=== PATIENT | male | born 1960 | race Caucasian/White ===

== ENCOUNTER 2019-04-19 18:34 | Observation (INO) | payer BC ==
--- NOTE | 2019-04-19 19:11 | Emergency Department Record ---
History of Present Illness - General Chief complaint: Extremity Problem Stated complaint: LT ARM PAIN MONTH Time Seen by Provider: 04/19/19 18:41 Source: Patient Mode of Arrival: Ambulatory Limitations: No limitations - History of Present Illness Initial comments: 58 yo male presents to ED for evaluation of intermittent left upper arm pain for 1 month, worsens with movement of the upper extremity. Patient denies pain with exertion walking up or down stairs, denies chest discomfort or back pain symptoms. Patient does report significant history of anxiety symptoms, became concerned tonight that he "might not wake up tomorrow". Patient does report a history of HTN, hypercholesterolemia. Patient also reports that he has been drinking alcohol tonight. MD Complaint: Extremity pain Onset/Timin -: Month(s) Location: Left, Arm History of Same: Yes Severity scale (1-10): 1 Quality: Sharp, Stabbing Consistency: Intermittent Improves with: Nothing Worsens with: Nothing - Related Data Home Medications Medication Instructions Recorded Confirmed Last Taken Amlodipine Besylate [Norvasc] 10 mg PO DAILY 04/19/19 04/19/19 04/19/19 Chlordiazepoxide HCl [Librium] 25 mg PO ASDIR 04/19/19 04/19/19 04/18/19 Dexlansoprazole [Dexilant] 60 mg PO DAILY 04/19/19 04/19/19 04/19/19 Levothyroxine Sodium [Synthroid] 88 mcg PO DAILY 04/19/19 04/19/19 04/19/19 Lisinopril 20 mg PO DAILY 04/19/19 04/19/19 04/19/19 Pravastatin Sodium [Pravachol] 40 mg PO DAILY 04/19/19 04/19/19 04/19/19 Sertraline HCl [Zoloft] 25 mg PO DAILY 04/19/19 04/19/19 04/19/19 Allergies Allergy/AdvReac Type Severity Reaction Status Date / Time erythromycin base Allergy PT UNSURE Verified 04/19/19 18:40 OF REACTION Horse/Equine Containing Allergy SWELLING Verified 04/19/19 18:40 Products (GENERAL) atenolol [From Tenormin] AdvReac DIARRHEA Verified 04/19/19 18:40 codeine AdvReac PT UNSURE Verified 04/19/19 18:40 OF REACTION Travel Screening - Travel/Exposure Within Last 30 Days Have you traveled within the last 30 days?: No - Travel/Exposure Within Last Year Have you traveled outside the [place] in the last year?: No - Additonal Travel Details Have you been exposed to anyone with a communicable illness?: No - Travel Symptoms Symptom Screening: None Review of Systems Constitutional: Denies: Chills, Fever, Malaise, Night sweats Eyes: Denies: Eye discharge, Eye pain ENT: Denies: Congestion, Ear pain, Epistaxis Respiratory: Denies: Cough, Dyspnea Cardiovascular: Denies: Chest pain, Dyspnea on exertion Endocrine: Denies: Fatigue, Heat or cold intolerance Gastrointestinal: Denies: Abdominal pain, Nausea, Vomiting Genitourinary: Denies: Incontinence, Retention Musculoskeletal: Reports: Myalgia. Denies: Arthralgia, Back pain, Gout, Joint swelling, Other Skin: Denies: Bruising, Change in color Neurological: Denies: Abnormal gait, Confusion, Headache, Seizure Psychiatric: Denies: Anxiety Hematological/Lymphatic: Denies: Anemia, Blood Clots Past Medical History - SOCIAL HISTORY Smoking Status: Former smoker Alcohol Use: Heavy Drug Use: None - RESPIRATORY Hx Respiratory Disorders: No - CARDIOVASCULAR Hx Cardio Disorders: Yes Hx Hypertension: Yes - NEURO Hx Neuro Disorders: No - GI Hx GI Disorders: No - Hx Genitourinary Disorders: No - ENDOCRINE Hx Endocrine Disorders: Yes Hx Thyroid Disease: Yes - MUSCULOSKELETAL Hx Musculoskeletal Disorders: No - PSYCH Hx Psych Problems: Yes Hx Anxiety: Yes - HEMATOLOGY/ONCOLOGY Hx Hematology/Oncology Disorders: No Family Medical History Any Significant Family History?: Yes Family Hx Comment (NOT TO BE USED IN PLACE OF ITEMS BELOW): Dad AAA Hx Cancer: Mother Hx Heart Disease: Father, Mother Physical Exam - General General Appearance: Alert, Oriented x3, Cooperative, No acute distress, Other (Clinically intoxicated on examination) Limitations: No limitations - Head Head exam: Atraumatic, Normocephalic, Normal inspection Head exam detail: negative: Abrasion, Contusion, Leon's sign, General tenderness, Hematoma, Laceration - Eye Eye exam: Normal appearance. negative: Conjunctival injection, Periorbital swelling, Periorbital tenderness, Scleral icterus - ENT Ear exam: negative: Auricular hematoma, Auricular trauma Nasal Exam: negative: Active bleeding, Discharge, Dried blood, Foreign body Mouth exam: negative: Drooling, Laceration, Muffled voice, Tongue elevation - Neck Neck exam: Normal inspection. negative: Meningismus, Tenderness - Respiratory Respiratory exam: Normal lung sounds bilaterally. negative: Rales, Respiratory distress, Rhonchi, Stridor - Cardiovascular Cardiovascular Exam: Regular rate, Normal rhythm, Normal heart sounds - GI/Abdominal GI/Abdominal exam: Soft. negative: Rebound, Rigid, Tenderness - Rectal Rectal exam: Deferred - exam: Deferred - Extremities Extremities exam: Normal inspection. negative: Pedal edema, Tenderness - Back Back exam: Denies: CVA tenderness (R), CVA tenderness (L) - Neurological Neurological exam: Alert, Normal gait, Oriented X3 - Psychiatric Psychiatric exam: Anxious - Skin Skin exam: Normal color. negative: Abrasion Type of lesion: negative: abrasion Course Vital Signs 04/19/19 18:47 Temperature 98.5 F Pulse Rate 82 Respiratory 20 Rate Blood Pressure 161/106 Pulse Ox 97 - Reevaluation(s) Reevaluation #1: 04/19/19 19:23 EKG: NSR 73 Normal axis, normal intervals No acute ST-T wave changes are present on examination. Reevaluation #2: 04/19/19 19:53 Laboratory studies were reviewed and appear grossly unremarkable for an acute process except for the following: Alcohol 0.247 CXR: Borderline cardiomegaly No acute pulmonary process Reevaluation #3: 04/19/19 20:03 The patient was deemed to be low-risk for cardiac disease based on the patients history and evaluation in the ED, HEART Score was applied and found to be 4. Recommended admission for chemical stress testing and further evaluation. Patient will discuss admission with his and decide. Reevaluation #4: 04/19/19 20:29 Patient reports that he is willing to stay for admission and cardiac testing. Case was discussed with Dr. Paul, will accept admission at this time. Medical Decision Making - Lab Data Result diagrams: 04/19/19 19:15 04/19/19 19:15 Disposition Disposition: Admit Clinical Impression: Atypical chest pain Decision to Admit: Admit from ER Decision to Admit Date: 04/19/19 Decision to Admit Time: 20:29 Condition: (2) Stable Forms: Patient Portal Access Time of Disposition: 20:29 Quality - Quality Measures Quality Measures: N/A - Blood Pressure Screening Does Patient Have Any of the Following: Active Dx of HTN Blood Pressure Classification: Hypertensive Reading Systolic Measurement: 161 Diastolic Measurement: 106 Screening for High Blood Pressure: Patient Exclusion, Hx of HTN [[id number]]
[2019-04-19 19:25] LABS: ABSOLUTE NEUTROPHIL COUNT 3.81; BASO % 0.4 % (0-6); EOS % 2.9 % (0-6); GRAN % 52.8 % (47-80); HEMATOCRIT 45.9 % (42.0-52.0); HEMOGLOBIN 15.1 gm/dl (14.0-18.0); LYMPH % 36.4 % (16-45); MEAN CELL VOLUME 94.6 fl (81-97); MEAN CORPUSCULAR HEMOGLOBIN 31.1 pg (27-33); MEAN CORPUSCULAR HGB CONC 32.9 g/dl (32-36); MEAN PLATELET VOLUME 9.5 fl (7.4-10.4); MONO % 7.5 % (0-9); PLATELET COUNT 311 K/uL (130-400); RED BLOOD COUNT 4.85 M/uL (4.40-5.70); RED CELL DISTRIBUTION WIDTH 13.7 % (11.5-14.5); WHITE BLOOD COUNT W/O DIFF 7.2 K/uL (4.2-12.2)
[2019-04-19 19:34] LABS: BLOOD UREA NITROGEN 7 mg/dL (6-20); CREATININE 0.6 mg/dL (0.7-1.2); EST GLOMERULAR FILTRATION RATE > 60 mL/min
[2019-04-19 19:35] LABS: TOTAL PROTEIN 7.9 g/dL (6.6-8.7)
[2019-04-19 19:37] LABS: GLUCOSE,RANDOM 109 mg/dL (74-109)
[2019-04-19 19:40] LABS: ALB/GLOB RATIO 1.3 (1.1-1.8); ALBUMIN 4.5 g/dL (4.0-5.0); ALKALINE PHOSPHATASE 84 U/L (40-129); ALT/SGPT 35 U/L (<41); AST/SGOT 32 U/L (10.0-50.0)
[2019-04-19] MEDS ORDERED: ASPIRIN 81 MG CHEWABLE TABLET PO ONE (20:35)
--- NOTE | 2019-04-19 20:49 | RADIOLOGY REPORT ---
EXAMINATION: 2 view chest x-rays EXAM DATE: 04/19/2019 8:43 PM INDICATION: chest pain. Left arm pain per the technologist history. COMPARISON: None FINDINGS: The heart is borderline enlarged. The thoracic aorta is minimally tortuous. The lungs are clear. No pleural effusion is seen. There are mild degenerative changes in the thoracic spine. IMPRESSION: 1. Borderline cardiomegaly. 2. No acute pulmonary disease. Dictated by: Rogerio Blackburn MD on 04/19/2019 8:46 PM. .
[2019-04-19] MEDS ORDERED: 0.9 % SODIUM CHLORIDE 1000ML 1,000 ML IV ONE (20:55)
[2019-04-19] MEDS ORDERED: CHLORDIAZEPOXIDE 25 MG CAPSULE PO PRN (20:55)
[2019-04-19] MEDS: LORAZEPAM 2 MG/ML VIAL IV PRN (23:23)
[2019-04-20] MEDS: LORAZEPAM 2 MG/ML VIAL IV PRN (04:02)
[2019-04-20] MEDS ORDERED: LEVOTHYROXINE SODIUM 88 MCG TABLET PO SCH (07:00)
[2019-04-20] MEDS: PANTOPRAZOLE SODIUM 40 MG TABLET PO SCH ×2 (08:15→09:01)
[2019-04-20] MEDS: LISINOPRIL 20 MG TABLET PO SCH ×2 (08:15→09:02)
[2019-04-20] MEDS: SIMVASTATIN 20 MG TABLET PO SCH ×2 (08:16→09:02)
[2019-04-20] MEDS: SERTRALINE HCL 50 MG TABLET PO SCH ×3 (08:16→09:02)
[2019-04-20] MEDS: AMLODIPINE BESYLATE 5MG TAB PO SCH ×2 (08:16→09:01)
[2019-04-20] MEDS: ASPIRIN 325 MG TAB ENTERIC-COATED PO SCH ×2 (08:16→09:01)
--- NOTE | 2019-04-20 10:41 | History & Physical ---
History of Present Illness - Date of Service Date of Service for History & Physical: 04/20/19 - History of Present Illness Admitting Diagnosis: Atypical chest pain. Alcohol withdrawal History of Present Illness: Mr. Stanley is a 58 y/o male with complaint of left shoulder pain with radiation. The patient says that this has been going on for years and he can change position to make it go away. His pain is worse with movement or prolonged activities at work. 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 He denies chest pain, shortness of breath headaches and has not had any numbness of the hands. He has history of hypertension, and anxiety and has had previous hospital admissions for panic attacks. The patient says that he drinks 4-6 beers daily and has 6 shots of Gin. He says that he has been doing this for years because he has no enjoyment in life anymore. e takes Librium 3-4 times weekly as needed and is on Zoloft. ED course: BP: 161/106, HR 82, T 98.2, Sats 97% RA, RR 20 CXR: no acute process noted. ECG: no acute ST-T changes, mild Qtc prolongation 450. Labs: Troponins negative x 2. Etoh 0.247 Travel Screening - Travel/Exposure Within Last 30 Days Have you traveled within the last 30 days?: No - Travel/Exposure Within Last Year Have you traveled outside the [place] in the last year?: No - Additonal Travel Details Have you been exposed to anyone with a communicable illness?: No - Travel Symptoms Symptom Screening: None Review of Systems Constitutional: Denies: Chills, Fever, Malaise, Night sweats Eyes: Denies: Eye discharge, Eye pain ENT: Denies: Congestion, Ear pain, Epistaxis Respiratory: Denies: Cough, Dyspnea Cardiovascular: Denies: Chest pain, Dyspnea on exertion Endocrine: Denies: Fatigue, Heat or cold intolerance Gastrointestinal: Denies: Abdominal pain, Nausea, Vomiting Genitourinary: Denies: Incontinence, Retention Musculoskeletal: Reports: Myalgia. Denies: Arthralgia, Back pain, Gout, Joint swelling, Other Skin: Denies: Bruising, Change in color Neurological: Denies: Abnormal gait, Confusion, Headache, Seizure Psychiatric: Denies: Anxiety Hematological/Lymphatic: Denies: Anemia, Blood Clots Past Medical History - SOCIAL HISTORY Smoking Status: Former smoker Alcohol Use: Heavy Drug Use: None - RESPIRATORY Hx Respiratory Disorders: No - CARDIOVASCULAR Hx Cardio Disorders: Yes Hx Hypertension: Yes - NEURO Hx Neuro Disorders: No - GI Hx GI Disorders: No - Hx Genitourinary Disorders: No - ENDOCRINE Hx Endocrine Disorders: Yes Hx Thyroid Disease: Yes - MUSCULOSKELETAL Hx Musculoskeletal Disorders: No - PSYCH Hx Psych Problems: Yes Hx Anxiety: Yes - HEMATOLOGY/ONCOLOGY Hx Hematology/Oncology Disorders: No Family Medical History Any Significant Family History?: Yes Family Hx Comment (NOT TO BE USED IN PLACE OF ITEMS BELOW): Dad AAA Hx Cancer: Mother Hx Heart Disease: Father, Mother H&P Meds/Allergies - Allergies Allergies: Allergies Allergy/AdvReac Type Severity Reaction Status Date / Time erythromycin base Allergy PT UNSURE Verified 04/19/19 18:40 OF REACTION Horse/Equine Containing Allergy SWELLING Verified 04/19/19 18:40 Products (GENERAL) atenolol [From Tenormin] AdvReac DIARRHEA Verified 04/19/19 18:40 codeine AdvReac PT UNSURE Verified 04/19/19 18:40 OF REACTION - Home Medications Home Medications Medication Instructions Recorded Confirmed Last Taken Amlodipine Besylate [Norvasc] 10 mg PO DAILY 04/19/19 04/19/19 04/19/19 Chlordiazepoxide HCl [Librium] 25 mg PO ASDIR 04/19/19 04/19/19 04/18/19 Dexlansoprazole [Dexilant] 60 mg PO DAILY 04/19/19 04/19/19 04/19/19 Levothyroxine Sodium [Synthroid] 88 mcg PO DAILY 04/19/19 04/19/19 04/19/19 Lisinopril 20 mg PO DAILY 04/19/19 04/19/19 04/19/19 Pravastatin Sodium [Pravachol] 40 mg PO DAILY 04/19/19 04/19/19 04/19/19 Sertraline HCl [Zoloft] 25 mg PO DAILY 04/19/19 04/19/19 04/19/19 - Active Medications Active Medications: Current Medications Amlodipine Besylate (Norvasc) 10 mg PO DAILY [facility] Last Admin: 04/20/19 09:01 Dose: Not Given Documented by: Aspirin (Ecotrin (Ec)) 325 mg PO DAILY [facility] Last Admin: 04/20/19 09:01 Dose: Not Given Documented by: Chlordiazepoxide HCl (Librium) 25 mg PO Q6H PRN PRN Reason: ANXIETY Levothyroxine Sodium (Synthroid) 88 mcg PO DAILYTHY [facility] Last Admin: 04/20/19 06:02 Dose: 88 mcg Documented by: Lisinopril (Zestril) 20 mg PO DAILY [facility] Last Admin: 04/20/19 09:02 Dose: Not Given Documented by: Lorazepam (Ativan) 2 mg IV Q2HR PRN PRN Reason: ANXIETY Last Admin: 04/20/19 04:02 Dose: 2 mg Documented by: [facility] Sertraline HCl (Zoloft) 25 mg PO DAILY [facility] Last Admin: 04/20/19 09:02 Dose: Not Given Documented by: Simvastatin (Zocor) 20 mg PO DAILY [facility] Last Admin: 04/20/19 09:02 Dose: Not Given Documented by: Physical Exam - Vital Signs Vital Signs: Vital Signs - Last 24 Hrs Temp Pulse Pulse Pulse Resp BP BP 04/20/19 09:48 96 H 20 04/20/19 08:23 18 04/20/19 07:59 98.1 F 93 H 24 159/94 04/20/19 04:00 98.6 F 84 16 150/89 04/19/19 21:53 98.4 F 62 18 148/88 04/19/19 20:57 74 20 131/85 04/19/19 19:32 67 20 108/67 04/19/19 18:47 98.5 F 82 20 161/106 Pulse Ox 04/20/19 09:48 93 L 04/20/19 08:23 04/20/19 07:59 94 L 04/20/19 04:00 95 04/19/19 21:53 98 04/19/19 20:57 95 04/19/19 19:32 96 04/19/19 18:47 97 - General General Appearance: Alert, Oriented x3, Cooperative, No acute distress, Other (Clinically intoxicated on examination) Limitations: No limitations - Head Head exam: Atraumatic, Normocephalic, Normal inspection Head exam detail: negative: Abrasion, Contusion, Leon's sign, General tenderness, Hematoma, Laceration - Eye Eye exam: Normal appearance. negative: Conjunctival injection, Periorbital swelling, Periorbital tenderness, Scleral icterus - ENT Ear exam: negative: Auricular hematoma, Auricular trauma Nasal Exam: negative: Active bleeding, Discharge, Dried blood, Foreign body Mouth exam: negative: Drooling, Laceration, Muffled voice, Tongue elevation - Neck Neck exam: Normal inspection. negative: Meningismus, Tenderness - Respiratory Respiratory exam: Normal lung sounds bilaterally. negative: Rales, Respiratory distress, Rhonchi, Stridor - Cardiovascular Cardiovascular Exam: Regular rate, Normal rhythm, Normal heart sounds - GI/Abdominal GI/Abdominal exam: Soft. negative: Rebound, Rigid, Tenderness - Rectal Rectal exam: Deferred - exam: Deferred - Extremities Extremities exam: Normal inspection. negative: Pedal edema, Tenderness - Back Back exam: Denies: CVA tenderness (R), CVA tenderness (L) - Neurological Neurological exam: Alert, Normal gait, Oriented X3 - Psychiatric Psychiatric exam: Anxious - Skin Skin exam: Normal color. negative: Abrasion Type of lesion: negative: abrasion Results - Labs Result Diagrams: 04/19/19 19:15 04/19/19 19:15 Labs Last 24 Hours: Laboratory Results - last 24 hr 04/19/19 04/19/19 04/19/19 19:15 19:15 19:15 WBC 7.2 RBC 4.85 Hgb 15.1 Hct 45.9 MCV 94.6 MCH 31.1 MCHC 32.9 RDW 13.7 Plt Count 311 MPV 9.5 Gran % 52.8 Lymphocytes % 36.4 Monocytes % 7.5 Eosinophils % 2.9 Basophils % 0.4 Absolute Neutrophils 3.81 Sodium 136 Potassium 3.6 Chloride 95 L Carbon Dioxide 22.0 Anion Gap 19.0 H BUN 7 Creatinine 0.6 L Estimated GFR > 60 Random Glucose 109 Calcium 9.3 Total Bilirubin 0.30 AST 32 ALT 35 Alkaline Phosphatase 84 Troponin T < 0.010 Total Protein 7.9 Albumin 4.5 Globulin 3.4 Albumin/Globulin Ratio 1.3 Ethyl Alcohol 0.247 H 04/20/19 03:55 WBC RBC Hgb Hct MCV MCH MCHC RDW Plt Count MPV Gran % Lymphocytes % Monocytes % Eosinophils % Basophils % Absolute Neutrophils Sodium Potassium Chloride Carbon Dioxide Anion Gap BUN Creatinine Estimated GFR Random Glucose Calcium Total Bilirubin AST ALT Alkaline Phosphatase Troponin T < 0.010 Total Protein Albumin Globulin Albumin/Globulin Ratio Ethyl Alcohol VTE H&P Assessment - Risk for VTE Risk for VTE: Yes Risk Level: High Risk Assessment Date: 04/20/19 Risk Assessment Time: 10:47 VTE Orders Placed or Will Be Placed: Yes Plan - Detailed Diagnosis and Plan (1) Chest wall pain Current Visit: Yes Status: Acute Base Code: R07.89 - OTHER CHEST PAIN Comment: 04/20/19: - Chest wall pain which is positional/ reproducible with movement of the arm and radiates to the left shoulder. - Troponins negative x 2. - CXR: negative for acute process. - ECG: NSR, with mild Qtc prolongation. - Given ASA 325mg PO x 1 in ED. - radiation monitor: No acute changes. - Symptoms likely 2/2 to chronic shoulder, cervical spine issues. (2) Chronic left shoulder pain Current Visit: Yes Status: Acute Base Code: M25.512 - PAIN IN LEFT SHOULDER; G89.29 - OTHER CHRONIC PAIN Comment: 04/20/19: - Hx of left shoulder injury and pain. Reproducible pain of the left shoulder with radiation. - CXR: negative for acute process. - ECG: normal sinus rhythm - Troponins negative x 2, no other acute electrolyte abnormalities. - radiation monitor: no acute arrhythmias overnight. - Tylenol 650mg TID PRN and will need CT/MRI as outpatient. (3) HTN (hypertension) Current Visit: Yes Status: Acute Base Code: I10 - ESSENTIAL (PRIMARY) HYPERTENSION Comment: 04/20/19: - Resume Lisnopril 20mg and Amlodipine 10mg daily. - DASH diet. - Etoh cessation encouraged. (4) Anxiety and depression Current Visit: Yes Status: Acute Base Code: F41.9 - ANXIETY DISORDER, UNSPECIFIED; F32.9 - MAJOR DEPRESSIVE DISORDER, SINGLE EPISODE, UNSPECIFIED Comment: 04/20/19: - Hx of anxiety, depression and panic attacks. - Resume home doses of Zoloft and Librium. - Mental health counseling recommended in addition to pharmacotherapy. (5) EtOH dependence Current Visit: Yes Status: Acute Base Code: F10.20 - ALCOHOL DEPENDENCE, UNCOMPLICATED Comment: 04/20/19: - Drinks 4-6 beers jose m, 6 shots of Gin. Last drink yesterday 04/19/19 - Etoh level 0.247 - No signs of withdrawals. - Resume home dose of Librium. - Behavioral and mental health counseling to help with reduction in Etoh use. (6) DVT prophylaxis Current Visit: Yes Status: Acute Base Code: Z29.9 - ENCOUNTER FOR PROPHYLACTIC MEASURES, UNSPECIFIED Comment: 04/20/19: - High risk of DVT. - Lovenox 40mg sc qd. (7) Full code status Current Visit: Yes Status: Acute Base Code: Z78.9 - OTHER SPECIFIED HEALTH STATUS Comment: 04/20/19: - The patient is full code status.
--- NOTE | 2019-04-20 11:01 | Discharge Summary ---
Providers Discharge Summary Date: 04/20/19 Date of admission: 04/19/19 20:59 Attending physician: CARMEN PAUL Primary care physician: DOMINGA CAPONE D.O. Consults: Consult Orders 04/19/19 20:55 Consult - Cardiology NOW Consulting Provider: Jass Escoto Physician Instructions: Reason For Exam: Atypical chest pain Does pt have current electrical and instrumentation mechanic?: Not Established Physical Exam - Vital Signs Vital Signs: Vital Signs - Last 24 Hrs Temp Pulse Pulse Pulse Resp BP BP 04/20/19 09:48 96 H 20 04/20/19 08:23 18 04/20/19 07:59 98.1 F 93 H 24 159/94 04/20/19 04:00 98.6 F 84 16 150/89 04/19/19 21:53 98.4 F 62 18 148/88 04/19/19 20:57 74 20 131/85 04/19/19 19:32 67 20 108/67 04/19/19 18:47 98.5 F 82 20 161/106 Pulse Ox 04/20/19 09:48 93 L 04/20/19 08:23 04/20/19 07:59 94 L 04/20/19 04:00 95 04/19/19 21:53 98 04/19/19 20:57 95 04/19/19 19:32 96 04/19/19 18:47 97 - General General Appearance: Alert, Oriented x3, Cooperative, No acute distress, Other (Clinically intoxicated on examination) Limitations: No limitations - Head Head exam: Atraumatic, Normocephalic, Normal inspection Head exam detail: negative: Abrasion, Contusion, Leon's sign, General tenderness, Hematoma, Laceration - Eye Eye exam: Normal appearance. negative: Conjunctival injection, Periorbital swelling, Periorbital tenderness, Scleral icterus - ENT Ear exam: negative: Auricular hematoma, Auricular trauma Nasal Exam: negative: Active bleeding, Discharge, Dried blood, Foreign body Mouth exam: negative: Drooling, Laceration, Muffled voice, Tongue elevation - Neck Neck exam: Normal inspection. negative: Meningismus, Tenderness - Respiratory Respiratory exam: Normal lung sounds bilaterally. negative: Rales, Respiratory distress, Rhonchi, Stridor - Cardiovascular Cardiovascular Exam: Regular rate, Normal rhythm, Normal heart sounds Peripheral Pulses: 3+: Radial (R), Radial (L), Dorsalis Pedis (R), Dorsalis Pedis (L) - GI/Abdominal GI/Abdominal exam: Soft. negative: Rebound, Rigid, Tenderness - Rectal Rectal exam: Deferred - exam: Deferred - Extremities Extremities exam: Normal inspection, Other (left shoulder tenderness at SC joint, restricted ROM, pain on abduction of the left shoulder). negative: Pedal edema, Tenderness - Back Back exam: Denies: CVA tenderness (R), CVA tenderness (L) - Neurological Neurological exam: Alert, Normal gait, Oriented X3 - Psychiatric Psychiatric exam: Anxious - Skin Skin exam: Normal color. negative: Abrasion Type of lesion: negative: abrasion Hospitalization - Hospitalization Admission Diagnosis: Atypical chest pain. Alcohol withdrawal - Problem List/Discharge Diagnosis (1) Chest wall pain Current Visit: Yes Status: Acute Base Code: R07.89 - OTHER CHEST PAIN Comment: 04/20/19: - Chest wall pain which is positional/ reproducible with movement of the arm and radiates to the left shoulder. - Troponins negative x 2. - CXR: negative for acute process. - ECG: NSR, with mild Qtc prolongation. - Given ASA 325mg PO x 1 in ED. 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 - Symptoms likely 2/2 to chronic shoulder, cervical spine issues. (2) Chronic left shoulder pain Current Visit: Yes Status: Acute Base Code: M25.512 - PAIN IN LEFT SHOULDER; G89.29 - OTHER CHRONIC PAIN Comment: 04/20/19: - Hx of left shoulder injury and pain. Reproducible pain of the left shoulder with radiation. - CXR: negative for acute process. - ECG: normal sinus rhythm - Troponins negative x 2, no other acute electrolyte abnormalities. - subassembly assembler: no acute arrhythmias overnight. - Tylenol 650mg TID PRN and will need CT/MRI as outpatient. (3) HTN (hypertension) Current Visit: Yes Status: Acute Base Code: I10 - ESSENTIAL (PRIMARY) HYP ERTENSION Comment: 04/20/19: - Resume Lisnopril 20mg and Amlodipine 10mg daily. - DASH diet. - Etoh cessation encouraged. (4) Anxiety and depression Current Visit: Yes Status: Acute Base Code: F41.9 - ANXIETY DISORDER, UNSPECIFIED; F32.9 - MAJOR DEPRESSIVE DISORDER, SINGLE EPISODE, UNSPECIFIED Comment: 04/20/19: - Hx of anxiety, depression and panic attacks. - Resume home doses of Zoloft and Librium. - Mental health counseling recommended in addition to pharmacotherapy. (5) EtOH dependence Current Visit: Yes Status: Acute Base Code: F10.20 - ALCOHOL DEPENDENCE, UNCOMPLICATED Comment: 04/20/19: - Drinks 4-6 beers jose m, 6 shots of Gin. Last drink yesterday 04/19/19 - Etoh level 0.247 - No signs of withdrawals. - Resume home dose of Librium. - Behavioral and mental health counseling to help with reduction in Etoh use. (6) DVT prophylaxis Current Visit: Yes Status: Acute Base Code: Z29.9 - ENCOUNTER FOR PROPHYLACTIC MEASURES, UNSPECIFIED Comment: 04/20/19: - High risk of DVT. - Lovenox 40mg sc qd. (7) Full code status Current Visit: Yes Status: Acute Base Code: Z78.9 - OTHER SPECIFIED HEALTH STATUS Comment: 04/20/19: - The patient is full code status. - Hospitalization Course Disposition: Home, Self-Care Hospital Course: Mr. Stanley is a 58 y/o male with complaint of left shoulder pain with radiation. The patient says that this has been going on for years and he can change position to make it go away. His pain is worse with movement or prolonged activities at work. 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 He denies chest pain, shortness of breath headaches and has not had any numbness of the hands. He has history of hypertension, and anxiety and has had previous hospital admissions for panic attacks. The patient says that he drinks 4-6 beers daily and has 6 shots of Gin. He says that he has been doing this for years because he has no enjoyment in life anymore. e takes Librium 3-4 times weekly as needed and is on Zoloft. ED course: BP: 161/106, HR 82, T 98.2, Sats 97% RA, RR 20 CXR: no acute process noted. ECG: no acute ST-T changes, mild Qtc prolongation 450. Labs: Troponins negative x 2. Etoh 0.247 Procedures: Imaging and X-Rays 04/19/19 20:18 CHEST 2 VIEWS [RAD] Stat Cardiology Procedures 04/19/19 19:06 EKG NOW 04/19/19 20:55 Dolphin Researcher .Continuous Abnormal Labs: Abnormal Lab Results 04/19/19 04/19/19 Range/Units 19:15 19:15 Chloride 95 L (98-107) mmol/L Anion Gap 19.0 H (7-16) Creatinine 0.6 L (0.7-1.2) mg/dL Ethyl Alcohol 0.247 H (0-0.010) g/dL Condition at Discharge: (2) Stable Discharge Medications - Discharge Medications Home Medications: Ambulatory Orders Amlodipine Besylate [Norvasc] 10 mg PO DAILY 04/19/19 [Last Taken 04/19/19] Chlordiazepoxide HCl [Librium] 25 mg PO ASDIR 04/19/19 [Last Taken 04/18/19] Dexlansoprazole [Dexilant] 60 mg PO DAILY 04/19/19 [Last Taken 04/19/19] Levothyroxine Sodium [Synthroid] 88 mcg PO DAILY 04/19/19 [Last Taken 04/19/19] Lisinopril 20 mg PO DAILY 04/19/19 [Last Taken 04/19/19] Pravastatin Sodium [Pravachol] 40 mg PO DAILY 04/19/19 [Last Taken 04/19/19] Sertraline HCl [Zoloft] 25 mg PO DAILY 04/19/19 [Last Taken 04/19/19] Discharge Plan - Discharge Instructions Activity at Discharge: Resume Usual Activities As Tolerated Diet at Discharge: Low Fat, Low Cholesterol, Low Salt Diet Instructions: Chest Pain (DC) Additional Instructions: Appointment with Dr. Paul on Saturday, Apr 29 at 11:30AM Resume all home medications as prescribed. It is important that you reduce your use of alcohol to avoid panic attacks and increase anxiety. Quality Measures - Quality Measures Quality Measures: Documentation of Current Medications in Medical Record, Screening for High Blood Pressure and F/U Documented - Current Medications Quality Measure: Measure #130: Documentation of Current Medications Documentation of Current Medications: <Current Medications Documented/Reviewed> [[id number]] - Blood Pressure Screening Quality Measure: Screening for High Blood Pressure and Follow-Up Documented Does Patient Have Any of the Following: Active Dx of HTN Blood Pressure Classification: Hypertensive Reading Systolic Measurement: 161 Diastolic Measurement: 106 Screening for High Blood Pressure: Patient Exclusion, Hx of HTN [G9744] - Elder Abuse Suspicion Index EASI Reference Information: Zia PINEDA, Alina Mtz, Jacqui Henson, Meliton Zapien.Development and validation of a tool to assist physicians identification of elder abuse: The Elder Abuse Suspicion Index (EASI ). Journal of Elder Abuse and Neglect, 2008; 20 (3): 276-300.
[2019-04-21] MEDS ORDERED: PANTOPRAZOLE SODIUM 40 MG TABLET PO SCH (07:00)
== END 2019-04-20 11:31 | disposition home or self-care (01) ==
LOC: ER 18:34 → MEDSURG 20:59
PROVIDERS: ADMIT Internal Medicine; ATTEND Internal Medicine
DX: R07.89 Other chest pain (principal); M25.512 Pain in left shoulder; G89.29 Other chronic pain; F41.9 Anxiety disorder, unspecified; F10.229 Alcohol dependence with intoxication, unspecified; F10.20 Alcohol dependence, uncomplicated; I10 Essential (primary) hypertension; E03.9 Hypothyroidism, unspecified; E78.00 Pure hypercholesterolemia, unspecified; Z87.891 Personal history of nicotine dependence
CPT/HCPCS: 85025; 80053; 84484 ×2; 71046; 93005; 93010; 94760; G0378 ×2; G0480; J2060 ×2; 80320; 99220; 99285